=== PATIENT | male | born 1990 | race Caucasian/White ===

== ENCOUNTER 2019-03-29 09:36 | Emergency (ER) | payer BC, OTHER ==
[2019-03-29] MEDS ORDERED: Sodium Chloride 0.9% 10 ML Syringe FLUSH PRN (10:20)
--- NOTE | 2019-03-29 10:24 | EDM.PDOC ---
<Morenita Flower L - Last Filed: 03/29/19 10:12> ED HPI GENERAL MEDICAL PROBLEM - General Chief Complaint: Abdominal Pain Stated Complaint: L SIDE ABD PAIN Time Seen by Provider: 03/29/19 09:55 Source of Information: Reports: Patient History Limitations: Reports: No Limitations - History of Present Illness INITIAL COMMENTS - FREE TEXT/NARRATIVE: 28-year-old male presents with LLQ pressure that worsens with movement. He states that it started yesterday after lifting some heavy equipment. The patient also notes a "gas bubble" under the skin. At the onset, the pain was a burning sensation but has now changed pressure. The pressure is constant but worsens with straining/movement. The patient denies changes to stool and urination, as well as lower back pain and leg pain. He has been taking acetaminophen with no relief of the pain/pressure. The patient is in no acute distress. Onset: Sudden Location: Reports: Abdomen (LLQ) Quality: Reports: Pressure, Other (yesterday he had a burning sensation in the LLQ) Severity: Mild Improves with: Reports: None Worsens with: Reports: Movement Associated Symptoms: Reports: No Other Symptoms Treatments MAGISTRATE JUDGE: Reports: Acetaminophen - Related Data Allergies Allergy/AdvReac Type Severity Reaction Status Date / Time No Known Allergies Allergy Verified 03/29/19 10:01 Home Meds: Home Meds Amoxicillin/Clavulanate K [Augmentin 875-125 MG] 1 tab PO BID #14 tablet [Rx] Past Medical History - Past Health History Medical/Surgical History: Denies Medical/Surgical History Social & Family History - Tobacco Use Smoking Status *Q: Never Smoker - Caffeine Use Caffeine Use: Reports: Coffee ED ROS GENERAL - Review of Systems Review Of Systems: See Below Constitutional: Reports: No Symptoms HEENT: Reports: Other (patient currently has a "head cold" but does not feel it is related to the new abdominal pressure) Respiratory: Reports: No Symptoms Cardiovascular: Reports: No Symptoms Endocrine: Reports: No Symptoms GI/Abdominal: Reports: Abdominal Pain (LLQ pressure ). Denies: Bloody Stool, Constipation, Diarrhea, Nausea, Vomiting : Reports: No Symptoms Musculoskeletal: Reports: No Symptoms Skin: Reports: No Symptoms Neurological: Reports: No Symptoms Psychiatric: Reports: No Symptoms Hematologic/Lymphatic: Reports: No Symptoms Immunologic: Reports: No Symptoms ED EXAM, GI/ABD - Physical Exam Exam: See Below Exam Limited By: No Limitations General Appearance: Alert, WD/WN, No Apparent Distress Respiratory/Chest: No Respiratory Distress, Lungs Clear, Normal Breath Sounds, No Accessory Muscle Use Cardiovascular: Normal Peripheral Pulses, Regular Rate, Rhythm, No Murmur GI/Abdominal Exam: Normal Bowel Sounds, Soft, No Mass, Tender (LLQ) (Male) Exam: No Hernia (No palpable hernia on exam, but patient states he is able to feel a "gas bubble" under the skin) Neurological: Alert, Oriented, Normal Cognition Psychiatric: Normal Affect, Normal Mood Skin Exam: Warm, Dry, Intact, Normal Color, No Rash Course - Vital Signs Last Recorded V/S: Last Vital Signs Temp 97.4 F 03/29/19 09:58 Pulse 94 03/29/19 09:58 Resp 16 03/29/19 09:58 BP 164/87 H 03/29/19 09:58 Pulse Ox 99 03/29/19 09:58 - Orders/Labs/Meds Orders: Active Orders 24 hr Category Date Time Status Peripheral IV Care [RC] . DIRECTED Care 03/29/19 10:20 Ordered Sodium Chloride 0.9% [Saline Flush] Med 03/29/19 10:20 Ordered 10 ml FLUSH ASDIRECTED PRN Peripheral IV Insertion Adult [OM.PC] Routine Oth 03/29/19 10:20 Ordered Medication Orders Sodium Chloride (Saline Flush) 10 ml FLUSH ASDIRECTED PRN PRN Reason: Keep Vein Open Last Admin: 03/29/19 11:44 Dose: 10 ml Labs: Laboratory Tests 03/29/19 03/29/19 Range/Units 10:45 10:45 WBC 8.53 (4.23-9.07) K/mm3 RBC 5.16 (4.63-6.08) M/mm3 Hgb 14.9 (13.7-17.5) gm/dl Hct 43.9 (40.1-51.0) % MCV 85.1 (79.0-92.2) fl MCH 28.9 (25.7-32.2) pg MCHC 33.9 (32.2-35.5) g/dl RDW Std Deviation 38.2 (35.1-43.9) fL Plt Count 262 (163-337) K/mm3 MPV 8.5 L (9.4-12.3) fl Neutrophils % (Manual) 61 H (40-60) % Band Neutrophils % 0 (0-10) % Lymphocytes % (Manual) 23 (20-40) % Atypical Lymphs % 0 % Monocytes % (Manual) 11 H (2-10) % Eosinophils % (Manual) 4 (0.8-7.0) % Basophils % (Manual) 1 (0.2-1.2) Platelet Estimate Adequate RBC Morph Comment Normal Sodium 137 (136-145) mEq/L Potassium 4.1 (3.5-5.1) mEq/L Chloride 101 (98-107) mEq/L Carbon Dioxide 28 (21-32) mEq/L Anion Gap 12.1 (5-15) BUN 12 (7-18) mg/dL Creatinine 1.0 (0.7-1.3) mg/dL Est Cr Clr Drug Dosing 111.53 mL/min Estimated GFR (MDRD) > 60 (>60) mL/min BUN/Creatinine Ratio 12.0 L (14-18) Glucose 89 (74-106) mg/dL Calcium 9.0 (8.5-10.1) mg/dL Total Bilirubin 0.5 (0.2-1.0) mg/dL AST 22 (15-37) U/L ALT 45 (16-63) U/L Alkaline Phosphatase 81 (46-116) U/L Total Protein 8.4 H (6.4-8.2) g/dl Albumin 4.3 (3.4-5.0) g/dl Globulin 4.1 gm/dL Albumin/Globulin Ratio 1.1 (1-2) Meds: Medications Generic Name Dose Route Start Last Admin Trade Name Freq PRN Reason Stop Dose Admin Sodium Chloride 10 ml 03/29/19 10:20 03/29/19 11:44 Saline Flush FLUSH 10 ml ASDIRECTED PRN Administration Keep Vein Open Discontinued Medications Generic Name Dose Route Start Last Admin Trade Name Freq PRN Reason Stop Dose Admin Diatrizoate Meglum/Diatrizoate Sod 90 ml 03/29/19 11:32 03/29/19 11:34 Gastrografin 37% PO 03/29/19 11:33 90 ml ONETIME ONE Administration Iopamidol 100 ml 03/29/19 11:32 03/29/19 11:34 Isovue-370 (76%) IVPUSH 03/29/19 11:33 100 ml ONETIME ONE Administration Sodium Chloride 10 ml 03/29/19 11:32 03/29/19 11:34 Saline Flush FLUSH 03/29/19 11:33 10 ml ONETIME ONE Administration Departure - Departure Disposition: Home, Self-Care 01 Clinical Impression: Diverticulitis large intestine Qualifiers: Diverticulitis bleeding: without bleeding Diverticulitis complication: without perforation or abscess Qualified Code(s): K57.32 - Diverticulitis of large intestine without perforation or abscess without bleeding - Discharge Information Instructions: Diverticulitis, [id number] Referrals: PCP,None [Primary Care Provider] - Forms: ED Department Discharge Additional Instructions: You were evaluated in the ED today regarding your abdominal pain. A CT was done, and demonstrated no sign of a hernia, however it did show some mild diverticulitis, which is an infection of the lining of your colon. Treatment for this is some antibiotics, you will be started on Augmentin, 1 tab twice daily for the next 7 days. Please note this antibiotic can cause some mild diarrhea recommend that you obtain a probiotic from the pharmacist when you get your antibiotic and start taking this while on antibiotic therapy to restore the normal gut kishore to help prevent diarrhea. You may take 500 mg Tylenol or 600 mg ibuprofen every 6 hours as needed for further pain relief. Please return to the ER at any time however if your symptoms change or worsen. Sepsis Event Note - Evaluation Sepsis Screening Result: No Definite Risk - Focused Exam Vital Signs: Vital Signs Temp Pulse Resp BP Pulse Ox 03/29/19 09:58 97.4 F 94 16 164/87 H 99 Date Exam was Performed: 03/29/19 Time Exam was Performed: 10:12 - My Orders Last 24 Hours: My Active Orders 03/29/19 10:20 Peripheral IV Care [RC] . DIRECTED Sodium Chloride 0.9% [Saline Flush] 10 ml FLUSH ASDIRECTED PRN Peripheral IV Insertion Adult [OM.PC] Routine - Assessment/Plan Last 24 Hours: My Active Orders 03/29/19 10:20 Peripheral IV Care [RC] . DIRECTED Sodium Chloride 0.9% [Saline Flush] 10 ml FLUSH ASDIRECTED PRN Peripheral IV Insertion Adult [OM.PC] Routine <Bianca Gamez - Last Filed: 03/29/19 12:44> ED HPI GENERAL MEDICAL PROBLEM - History of Present Illness INITIAL COMMENTS - FREE TEXT/NARRATIVE: I have read and reviewed the student's HPI and examined the patient and agree with GLEN Cartwright-student. Course - Orders/Labs/Meds Labs: Laboratory Tests 03/29/19 03/29/19 Range/Units 10:45 10:45 WBC 8.53 (4.23-9.07) K/mm3 RBC 5.16 (4.63-6.08) M/mm3 Hgb 14.9 (13.7-17.5) gm/dl Hct 43.9 (40.1-51.0) % MCV 85.1 (79.0-92.2) fl MCH 28.9 (25.7-32.2) pg MCHC 33.9 (32.2-35.5) g/dl RDW Std Deviation 38.2 (35.1-43.9) fL Plt Count 262 (163-337) K/mm3 MPV 8.5 L (9.4-12.3) fl Neutrophils % (Manual) 61 H (40-60) % Band Neutrophils % 0 (0-10) % Lymphocytes % (Manual) 23 (20-40) % Atypical Lymphs % 0 % Monocytes % (Manual) 11 H (2-10) % Eosinophils % (Manual) 4 (0.8-7.0) % Basophils % (Manual) 1 (0.2-1.2) Platelet Estimate Adequate RBC Morph Comment Normal Sodium 137 (136-145) mEq/L Potassium 4.1 (3.5-5.1) mEq/L Chloride 101 (98-107) mEq/L Carbon Dioxide 28 (21-32) mEq/L Anion Gap 12.1 (5-15) BUN 12 (7-18) mg/dL Creatinine 1.0 (0.7-1.3) mg/dL Est Cr Clr Drug Dosing 111.53 mL/min Estimated GFR (MDRD) > 60 (>60) mL/min BUN/Creatinine Ratio 12.0 L (14-18) Glucose 89 (74-106) mg/dL Calcium 9.0 (8.5-10.1) mg/dL Total Bilirubin 0.5 (0.2-1.0) mg/dL AST 22 (15-37) U/L ALT 45 (16-63) U/L Alkaline Phosphatase 81 (46-116) U/L Total Protein 8.4 H (6.4-8.2) g/dl Albumin 4.3 (3.4-5.0) g/dl Globulin 4.1 gm/dL Albumin/Globulin Ratio 1.1 (1-2) - Re-Assessments/Exams Free Text/Narrative Re-Assessment/Exam: 03/29/19 10:47 Patient presents to the ED for the evaluation of lower abdominal pain, he was worried about a hernia, and was sent here for an abdomen pelvis CT for further evaluation. I will provide this test for him at this time, to see if this is what is causing his pain. Also have obtained some labs, patient is not needing any pain medication at this time. 03/29/19 12:37 CT report is back, and demonstrates the beginning of mild diverticulitis, which would be consistent with his clinical course. I will write a prescription for antibiotics for the gentleman and discharge him home with general recommendations. Departure - Departure Time of Disposition: 12:42 Condition: Fair - Discharge Information *PRESCRIPTION DRUG MONITORING PROGRAM REVIEWED*: No *COPY OF PRESCRIPTION DRUG MONITORING REPORT IN PATIENT NALDO: No Sepsis Event Note - Focused Exam Date Exam was Performed: 03/29/19 Time Exam was Performed: 12:37
[2019-03-29] MEDS ORDERED: Sodium Chloride 0.9% 10 ML Syringe FLUSH ONE (11:32)
[2019-03-29] MEDS ORDERED: Iopamidol 755 Mg/ML 100 ML Bottle IVPUSH ONE (11:32)
[2019-03-29] MEDS ORDERED: Diatrizoate Meglumine/Diatrizoate Sodium 37% 120 ML Bottle PO ONE (11:32)
--- NOTE | 2019-03-29 12:31 | CT ---
CT abdomen and pelvis Technique: Multiple axial sections were obtained from above the dome of the diaphragm inferiorly through the pubic symphysis. Intravenous and oral contrast was utilized. Comparison: No prior abdominal imaging. Findings: Visualized lung bases show nothing acute. Calcification is noted within the right lobe of the liver measuring about 1 cm in size which is felt to be dystrophic and incidental. No additional abnormality is seen within the liver. Spleen appears within normal limits. Adrenal glands show no nodule. Pancreas is within normal limits. Gallbladder contains no calcified gallstones. Aorta shows no aneurysm. Kidneys show a low density lesion within the mid to lower right kidney measuring 1.4 cm which is compatible with a cyst. No additional abnormalities are seen within the kidneys. No retroperitoneal adenopathy is seen. Appendix is seen which is normal in size. No pelvic mass or adenopathy is seen. No free fluid or inflammatory change is seen. Slightly increased stool is seen throughout the colon. Very slight inflammatory change is noted at the junction of the descending and sigmoid colon with small diverticulum seen in this area. Findings felt compatible with minimal diverticulitis. No additional inflammatory change is seen. No free fluid is seen. Bone window settings were reviewed which appear within normal limits for the patient's age. Small fat-containing umbilical hernia is noted. Impression: 1. Findings which are felt compatible with minimal diverticulitis near the junction of the descending and sigmoid colon. 2. Other findings which are believed to be incidental as described above. Diagnostic code #3 This report was dictated in [place] Standard Time
== END 2019-03-29 12:52 | disposition home or self-care (01) ==
LOC: JD.ED 09:36
DX: K57.32 Diverticulitis of large intestine without perforation or abscess without bleeding (principal)
CPT/HCPCS: 36415; 74177; 80053; 85007; 85027; 99284; Q9963; Q9967; 99283

== ENCOUNTER 2020-10-19 16:18 | Emergency (ER) | payer BC, OTHER ==
[2020-10-19] MEDS ORDERED: Lidocaine 1% with EPINEPHrine 1:100,000 10 ML MDV INJECT ONE (16:39)
--- NOTE | 2020-10-19 17:31 | EDM.PDOC ---
ED HPI GENERAL MEDICAL PROBLEM - General Chief Complaint: Laceration Stated Complaint: L HAND INJURY Time Seen by Provider: 10/19/20 16:32 Source of Information: Reports: Patient, RN Notes Reviewed History Limitations: Reports: No Limitations - History of Present Illness INITIAL COMMENTS - FREE TEXT/NARRATIVE: Patient is a 30-year-old male presenting to the emergency department with complaints of laceration to the dorsal aspect of his left hand. Reports that he hit his hand with a drill bit. Last tetanus vaccination was about 2 years ago. Left Hand Pain Score (Numeric/FACES): 10 - Related Data Allergies Allergy/AdvReac Type Severity Reaction Status Date / Time No Known Allergies Allergy Verified 10/19/20 16:33 Home Meds: Home Meds . [No Known Home Meds] 10/19/20 [History] Past Medical History - Past Health History Medical/Surgical History: Denies Medical/Surgical History Social & Family History - Tobacco Use Tobacco Use Status *Q: Never Tobacco User Second Hand Smoke Exposure: No - Caffeine Use Caffeine Use: Reports: Coffee - Recreational Drug Use Recreational Drug Use: No ED ROS GENERAL - Review of Systems Review Of Systems: Comprehensive ROS is negative, except as noted in HPI. ED EXAM, SKIN/RASH Exam: See Below General Appearance: Alert, WD/WN, No Apparent Distress Respiratory/Chest: No Respiratory Distress, Lungs Clear, Normal Breath Sounds, No Accessory Muscle Use, Chest Non-Tender Cardiovascular: Normal Peripheral Pulses, Regular Rate, Rhythm, No Edema, No Gallop, No JVD, No Murmur, No Rub Extremities: Other (1.5 cm u-shaped laceration to the dorsal aspect of the left hand. Small amount of active bleeding. Full strength and ROM of left hand.) Neurological: Alert, Oriented, CN II-XII Intact, Normal Cognition, Normal Gait, Normal Reflexes, No Motor/Sensory Deficits Psychiatric: Normal Affect, Normal Mood ED SKIN PROCEDURES - Laceration/Wound Repair Left Dorsal Hand Appearance: Subcutaneous Distal NVT: Neuro & Vascular Intact, No Tendon Injury Anesthetic Type: Local Local Anesthesia - Lidocaine (Xylocaine): 1% with EPI Skin Prep: Chlorhexidine (Hibiciens), Providone-Iodine (Betadine), Saline, Sterile Drape Exploration/Debridement/Repair: Wound Explored, In a Bloodless Field, Explored to Base, No Foreign Material Found Closed with: Sutures Lac/Wound length In cm: 1.5 Suture Size: 4-0 # of Sutures: 3 Suture Type: Nylon Sterile Dressing Applied: Nurse Tetanus Status Addressed: Yes Complications: No Course - Vital Signs Last Recorded V/S: Last Vital Signs Temp 97.7 F 10/19/20 16:30 Pulse 111 H 10/19/20 16:30 Resp 16 10/19/20 16:30 BP 162/89 H 10/19/20 16:30 Pulse Ox 95 10/19/20 16:30 - Orders/Labs/Meds Meds: Medications Discontinued Medications Generic Name Dose Route Start Last Admin Trade Name Valeri PRN Reason Stop Dose Admin Lidocaine/Epinephrine 10 ml 10/19/20 16:39 10/19/20 17:18 Lidocaine 1% With Epinephrine 1:100,000 10 Ml Mdv INJECT 10/19/20 16:40 10 ml ONETIME ONE Administration Departure - Departure Time of Disposition: 17:30 Disposition: Home, Self-Care 01 Condition: Good Clinical Impression: Laceration - Discharge Information *PRESCRIPTION DRUG MONITORING PROGRAM REVIEWED*: No *COPY OF PRESCRIPTION DRUG MONITORING REPORT IN PATIENT NALDO: No Instructions: Laceration Care, Adult Referrals: Lola Caruso NP [Primary Care Provider] - Additional Instructions: You were seen in the emergency department today for a laceration to your left hand. The wound was cleansed and closed with 3 sutures. These should stay intact for 7 days. After that time they may be removed in the clinic by a nurse. Keep the wound clean and dry. Wash with normal soap and water twice daily. Do not submerge the wound in water. Watch for signs of infection including increased redness, swelling, or purulent drainage. If these should occur, you should be seen either in the clinic or in the emergency department as antibiotic treatment may be needed. Return to the ER as needed. Sepsis Event Note (ED) - Evaluation Sepsis Screening Result: No Definite Risk - Focused Exam Vital Signs: Vital Signs Temp Pulse Resp BP Pulse Ox 10/19/20 16:30 97.7 F 111 H 16 162/89 H 95
== END 2020-10-19 17:45 | disposition home or self-care (01) ==
LOC: JD.ED 16:18
DX: S61.412A Laceration without foreign body of left hand, initial encounter (principal); W29.8XXA Contact with other powered hand tools and household machinery, initial encounter
CPT/HCPCS: 12001; 99282; 99282-25

== ENCOUNTER 2022-01-25 09:17 | Emergency (ER) | payer BC ==
[2022-01-25] MEDS ORDERED: Sodium Chloride 0.9% 1,000 ML IV SCH (10:30)
== END 2022-01-25 11:38 | disposition home or self-care (01) ==
LOC: JD.ED 09:17
DX: K64.9 Unspecified hemorrhoids (principal); R19.7 Diarrhea, unspecified
CPT/HCPCS: 36415; 80053; 85025; 86140; 96360; 99284; J7030